=== PATIENT | female | born 1960 | race Two or more races ===

== ENCOUNTER 2016-12-14 06:47 | Day surgery (SDC) | payer OTHER ==
--- NOTE | 2016-12-13 11:13 | HISTORY AND PHYSICAL E ---
History and Physical NAME: MARY MAYEN : 1960 AGE: 56Y ADMITTED: 12/14/2016 ROOM: HISTORY: Patient admitted regarding colonoscopy. A 56-year-old female. PAST SURGICAL HISTORY: 1. Hysterectomy. 2. . FAMILY HISTORY: Both parents are . ALLERGIES: NEGATIVE. REVIEW OF SYSTEMS: CARDIAC: Negative. ENDOCRINE: Negative. RESPIRATORY: Negative. GASTROINTESTINAL: Colonoscopy. ONCOLOGY/HEMATOLOGY: Negative. Colon exam in 2011 showed external hemorrhoid ascending colon, 3 mm sessile ascending colon polyp, and this polyp was a hyperplastic polyp ascending colon. Patient presented at this time regarding colon screening, history of right colon polyp. Patient referred at this time regarding colon exam. MEDICATIONS: 1. Vitamin E. 2. Vitamin C. 3. Venlafaxine 37.5. 4. Effexor XR 75. PAST MEDICAL HISTORY: 1. Hypercholesterolemia. 2. Depressive disorder. 3. Anxiety. 4. Varicose veins. 5. Fibroadenosis of the breasts. PLAN: The patient presented at this time regarding colon exam. Patient for colonoscopy 12/14/2016. DICTATING PHYSICIAN: BA MONAE M.D. [id number] Y#: [id number] ID: [id number] JOB#: [id number] ACCT: [id number] cc:BA MONAE M.D. >
[2016-12-14] MEDS ORDERED: ONDANSETRON HCL INJ/PF 4 MG/2 ML SDV ONE (07:23)
[2016-12-14] MEDS ORDERED: LIDOCAINE 2% JELLY 30 ML TUBE ONE (07:23)
[2016-12-14] MEDS ORDERED: NALOXONE HCL INJ/PF 0.4 MG/1 ML SDV ONE (07:23)
[2016-12-14] MEDS ORDERED: GLYCOPYRROLATE INJ 0.4 MG/2 ML VIAL ONE (07:23)
[2016-12-14] MEDS ORDERED: EPINEPHRINE INJ 1 MG/10 ML DISP.SYRIN ONE (07:24)
[2016-12-14] MEDS ORDERED: FENTANYL CITRATE INJ/PF 100 MCG/2 ML AMPUL ONE (07:24)
[2016-12-14] MEDS ORDERED: FLUMAZENIL INJ 0.5 MG/5 ML VIAL IV ONE (07:24)
[2016-12-14] MEDS ORDERED: GLUCAGON,HUMAN RECOMB 1 MG INJ ONE (07:25)
[2016-12-14] MEDS ORDERED: PROMETHAZINE HCL INJ 25 MG/1 ML VIAL IV PRN (07:46)
[2016-12-14] MEDS ORDERED: MEPERIDINE HCL/PF INJ 25 MG/1 ML DISP.SYRIN IV PRN (07:46)
[2016-12-14] MEDS ORDERED: FENTANYL CITRATE INJ/PF 100 MCG/2 ML AMPUL IV PRN ×3 (07:46)
[2016-12-14] MEDS ORDERED: DIPHENHYDRAMINE HCL 50 MG/ML VIAL IV PRN (07:46)
[2016-12-14] MEDS ORDERED: MORPHINE SULFATE 10 MG/ML INJ IV PRN (07:46)
[2016-12-14] MEDS: MIDAZOLAM 2 MG/2 ML INJ ONE ×3 (08:09→08:22)
[2016-12-14 09:10] VITALS: BP 126/80
--- NOTE | 2016-12-14 10:50 | DISCHARGE SUMMARY E ---
Discharge Summary NAME: MARY MAYEN : 1960 AGE: 56Y ADMITTED: 12/14/2016 DISCHARGED: 12/14/2016 HISTORY: Patient is 56, known to me. Had a previous colonoscopy showing polyp in ascending colon, hyperplastic. Today's colonoscopy was successful and good visualization with good prep all the way to the cecum. No polyps. One or 2 diverticulosis in the sigmoid colon and external hemorrhoids, mild. DISCHARGE PLAN: 1. Soft diet. 2. Resume all medicines. 3. Consider follow-up colon in 10 years. DICTATING PHYSICIAN: BA MONAE M.D. [id number] [id number] PHY#: [id number] ID: [id number] JOB#: [id number] ACCT: [id number] cc:[facility] SCVenkatesh SMITH. BA MONAE M.D. >
--- NOTE | 2016-12-14 10:51 | OPERATIVE REPORT E ---
Operative Report NAME: MARY MAYEN : 1960 AGE: 56Y DATE OF SURGERY: 12/14/2016 ROOM: PREOPERATIVE DIAGNOSIS: COLON SCREENING. POSTOPERATIVE DIAGNOSES: 1. DIVERTICULOSIS, SIGMOID. ONE OR TWO DIVERTICULOSES. 2. EXTERNAL HEMORRHOIDS, MILD. OPERATION: Colonoscopy. SURGEON: BA MONAE M.D. ANESTHESIA: Versed 4, fentanyl 100. TISSUE REMOVED OR ALTERED: None. DESCRIPTION OF PROCEDURE: RECTAL EXAM: Mild external hemorrhoids. SIGMOID: Diverticulosis, 1 or 2. DESCENDING COLON: Normal. TRANSVERSE COLON: Normal. ASCENDING COLON: Normal. CECUM: Normal. Patient did have remote history of polyp in the ascending colon; was hyperplastic. FINDINGS: Today's colonoscopy shows no polyps. Cecum and ascending normal. Transverse normal. Descending sigmoid, 1 or 2 diverticuloses. Rectum: External hemorrhoids. DISCHARGE PLAN: 1. Assurance. 2. High fiber diet. 3. Resume all medication. 4. Consider followup colonoscopy after 10 years. DICTATING PHYSICIAN: BA MONAE M.D. [id number] [id number] PHY#: [id number] ID: [id number] JOB#: [id number] ACCT: [id number] cc:[facility], BA MONAE M.D. >
== END 2016-12-14 09:50 | disposition home or self-care (01) ==
LOC: END 06:47
PROVIDERS: ATTEND Specialist
PROC: 0DJD8ZZ Inspection of Lower Intestinal Tract, Via Natural or Artificial Opening Endoscopic (ICD-10-PCS; principal; 2016-12-14 08:00)
DX: Z12.11 Encounter for screening for malignant neoplasm of colon (principal); K64.4 Residual hemorrhoidal skin tags; K57.30 Diverticulosis of large intestine without perforation or abscess without bleeding; Z86.010 Personal history of colon polyps; E78.00 Pure hypercholesterolemia, unspecified; F41.9 Anxiety disorder, unspecified; F32.9 Major depressive disorder, single episode, unspecified; Z79.899 Other long term (current) drug therapy
CPT/HCPCS: 45378; J2250; J3010; J1610; J2405; J0171; J2310; J3490

== ENCOUNTER 2017-01-16 20:13 | Emergency (ER) | payer OTHER ==
--- NOTE | 2017-01-16 23:32 | ER Document Report ---
HPI - HPI Patient complains to provider of: Sore throat Onset: Other - 3 days Onset/Duration: Persistent Quality of pain: Burning, Throbbing Pain Level: 5 Context: 57-year-old nondiabetic is complaining of sore throat for 3 days. She saw an urgent care provider in the [place] strep was negative. They gave her dexamethasone steroid. Today she is complaining of persistent sore throat, odynophagia, headache, low-grade fever. No runny nose or cough. No chest pain or shortness of breath. No nausea vomiting or diarrhea. No abdominal pain. No rash. Associated Symptoms: None Exacerbated by: Other - Swallowing Relieved by: Denies Similar symptoms previously: Yes Recently seen / treated by doctor: Yes - ROS ROS below otherwise negative: Yes Systems Reviewed and Negative: Yes All other systems reviewed and negative - CONSTITUTIONAL Constitutional: REPORTS: Fever, Chills - EENT EENT: REPORTS: Sore Throat - NEURO Neurology: REPORTS: Headache - DERM Skin Color: Normal Skin Problems: None - NURSING COMMENTS Comment: Pt presents with c/o severe sore throat. Seen at . Worse. See ED Triage note Past Medical History - General Information source: Patient - Social History Smoking Status: Never Smoker Frequency of alcohol use: None Drug Abuse: None Lives with: Family Family History: Reviewed & Not Pertinent Patient has suicidal ideation: No Patient has homicidal ideation: No Renal/ Medical History: Denies: Hx Peritoneal Dialysis Past Surgical History: Reports: Hx Hysterectomy. Denies: Hx Pacemaker - Immunizations Hx Diphtheria, Pertussis, Tetanus Vaccination: Yes Vertical Provider Document - CONSTITUTIONAL Agree With Documented VS: Yes Exam Limitations: No Limitations General Appearance: No Apparent Distress - INFECTION CONTROL TRAVEL OUTSIDE OF THE [place] IN LAST 30 DAYS: No - HEENT HEENT: Normocephalic, Pharyngeal Tenderness, Pharyngeal Erythema - uvula inflamed mild edema, no peritonsillar abscess or swelling. negative: Conjuctival Injection - NECK Neck: Supple, Lymphadenopathy-Right. negative: Lymphadenopathy-Left - RESPIRATORY Respiratory: Breath Sounds Normal, No Respiratory Distress O2 Sat by Pulse Oximetry: 98 - CARDIOVASCULAR Cardiovascular: Regular Rate, Regular Rhythm - GI/ABDOMEN Gastrointestinal: Abdomen Soft, Abdomen Non-Tender, No Organomegaly - MUSCULOSKELETAL/EXTREMETIES Musculoskeletal/Extremeties: KERON LORENZO - NEURO Level of Consciousness: Awake, Alert, Appropriate - DERM Integumentary: Warm, Dry, No Rash Course - Vital Signs Vital signs: Temp Pulse Resp BP Pulse Ox 99.1 F 95 17 177/94 H 98 01/16/17 20:50 01/16/17 20:50 01/16/17 20:50 01/16/17 20:50 01/16/17 20:50 Discharge - Discharge Clinical Impression: Pharyngitis Qualifiers: Pharyngitis/tonsillitis etiology: unspecified etiology Qualified Code(s): J02.9 - Acute pharyngitis, unspecified Condition: Good Disposition: HOME, SELF-CARE Instructions: Acetaminophen, ENT, Penicillin V K ([facility]), Sore Throat ([facility]), Ultram ([facility]) Additional Instructions: drink plenty of fluids to er if worse finish the antibiotics even if you feel better see ears nose throat doctor if persists Please complete the patient satisfaction survey if you get one, and return it.. If you do not receive a survey, then you can go to the [facility] website, [email or web address] and place your comments about your very good care. Thank you very much. It was a pleasure being your medical provider today. Prescriptions: Penicillin V Potassium [Penicillin Vk 500 mg Tablet] 500 mg PO QID #40 tablet Tramadol HCl [Ultram 50 mg Tablet] 50 mg PO ASDIR PRN #15 tablet PRN Reason: Forms: Return to Work
[2017-01-16] MEDS ORDERED: PENICILLIN V POTASSIUM 500 MG TABLET PO ONE (23:50)
[2017-01-16] MEDS ORDERED: IBUPROFEN 800 MG TABLET PO ONE (23:50)
[2017-01-16] MEDS ORDERED: ONDANSETRON 4 MG TAB.RAPDIS PO ONE (23:50)
[2017-01-16] MEDS ORDERED: ACETAMINOPHEN 325 MG TABLET PO ONE (23:52)
[2017-01-16] MEDS ORDERED: LIDOCAINE 2% VISCOUS SOLN 20 ML UDCUP PO ONE (23:57)
[2017-01-17 00:50] VITALS: BP 168/86
== END 2017-01-17 00:50 | disposition home or self-care (01) ==
LOC: ER 20:13
DX: J02.9 Acute pharyngitis, unspecified (principal); R51 Headache; R50.9 Fever, unspecified; Z90.710 Acquired absence of both cervix and uterus
CPT/HCPCS: 99282; S0119; J3490